=== PATIENT | male | born 1960 | race Caucasian/White ===

== ENCOUNTER 2019-09-29 22:57 | Emergency (ER) | payer BC ==
[~2019-09-29] VITALS: Ht 188 cm; Wt 111.4 kg
[2019-09-29] MEDS ORDERED: azithromycin 250mg tablet PO ONE (23:10)
[2019-09-29] MEDS ORDERED: AZIT-63 PO (23:12)
--- NOTE | 2019-09-29 23:45 | NUR ---
Consuelo duncan in [facility] - 09/29/19 at 2347 by BRIGIDA RESP HERE TO SEE PT
--- NOTE | 2019-09-29 23:45 | NUR ---
RESP HERE TO SEE PT
--- NOTE | 2019-09-29 23:46 | NUR ---
Consuelo duncan in [place] - 09/29/19 at 2347 by BRIGIDA BAILEE ABEBE
[2019-09-30 00:21] VITALS: BP 149/68
== END 2019-09-30 00:31 | disposition home or self-care (01) ==
LOC: ER 22:59
DX: J40 Bronchitis, not specified as acute or chronic (principal); Z79.899 Other long term (current) drug therapy
CPT/HCPCS: 99282; 99283

== ENCOUNTER 2020-01-02 05:01 | Day surgery (SDC) | payer BC ==
[2019-12-28 13:42] LABS: BASOPHILS # (AUTO) 0.1 X10'3 (0-0.2); BASOPHILS % (AUTO) 0.9 % (0-1); EOSINOPHILS # (AUTO) 0.3 X10'3 (0-0.9); EOSINOPHILS % (AUTO) 3.8 % (0-6); HEMATOCRIT 47.9 % (42.0-52.0); HEMOGLOBIN 16.6 g/dl (14.0-17.9); LYMPHOCYTES % (AUTO) 29.3 % (21-51); MEAN CORPUSCULAR HEMOGLOBIN 29.7 PG (27.0-31.0); MEAN CORPUSCULAR HGB CONC 34.7 g/dL (33.0-36.5); MEAN CORPUSCULAR VOLUME 85.7 FL (78-98); MONOCYTES # (AUTO) 0.8 X10'3 (0-0.9); MONOCYTES % (AUTO) 11.8 % (2-12); NEUTROPHILS # (AUTO) 3.6 X10'3 (1.8-7.7); NEUTROPHILS % (AUTO) 54.2 % (42-75); PLATELET COUNT 245 X10'3 (140-440); RED BLOOD COUNT 5.59 X10'6 (4.70-6.10); RED CELL DISTRIBUTION WIDTH 13.5 % (11.5-14.5); WHITE BLOOD COUNT 6.7 X10'3 (4.5-11.0)
[2019-12-28 13:55] LABS: ALBUMIN 4.4 G/DL (3.4-5.0); ANION GAP 7 (8-16); BLOOD UREA NITROGEN 15 MG/DL (7-18); CALCIUM 9.3 MG/DL (8.5-10.1); CHLORIDE 106 MMOL/L (99-107); CREATININE 0.75 MG/DL (0.60-1.10); GLUCOSE 102 MG/DL (70-104); SODIUM 141 MMOL/L (135-145); TOTAL CARBON DIOXIDE 27.9 MMOL/L (24-32); eGFR > 90 ML/MIN
[2019-12-28 13:56] LABS: PARTIAL THROMBOPLASTIN TIME 31 SECONDS (22-32)
[2020-01-02] VITALS (14 sets, daily range): BP systolic 123–160; BP diastolic 67–89
[~2020-01-02] VITALS: Ht 188 cm; Wt 124.1 kg
[2020-01-02] MEDS ORDERED: LORazepam 0.5 MG tablet PO PRN (05:25)
[2020-01-02] MEDS ORDERED: diphenhydrAMINE 25mg capsule PO PRN (05:25)
[2020-01-02] MEDS ORDERED: normal saline 1,000 ML IV SCH (05:25)
[2020-01-02] MEDS ORDERED: AMLO1CAP62 PO (05:39)
[2020-01-02] MEDS ORDERED: OMEG1CAP PO (05:39)
[2020-01-02] MEDS ORDERED: ASPI-611 PO (05:39)
[2020-01-02] MEDS ORDERED: fentaNYL/PF 50MCG/1 ML 2ML syringe ONE (06:02)
[2020-01-02] MEDS ORDERED: iohexol 350MG/ML 100ml bottle IV ONE ×2 (06:02→06:41)
[2020-01-02] MEDS ORDERED: LIDOcaine 1% (10mg/ml)w/preservative injection 20ml MDV ONE (06:02)
[2020-01-02] MEDS ORDERED: midazolam 2 mg/2 ml injection ONE ×2 (06:02→06:24)
[2020-01-02] MEDS ORDERED: heparin 1,000unit/ml 10ml vial 10 ML ONE (06:39)
[2020-01-02] MEDS ORDERED: HYDROcodone/acetaminophen 5mg/325mg tablet PO PRN (07:20)
[2020-01-02] MEDS ORDERED: proCHLORperazine 10 MG/2 ml inj IV PRN (07:20)
[2020-01-02] MEDS ORDERED: OXAZEpam 15mg capsule PO PRN (07:20)
[2020-01-02] MEDS ORDERED: ondansetron/PF 4mg/2ml inj IV PRN (07:20)
[2020-01-02] MEDS ORDERED: HYDROcodone/acetaminophen 10/325mg tab PO PRN (07:20)
[2020-01-02] MEDS ORDERED: ACETYLCYSTEINE 200 MG/1 ML 4 ML ORAL SOLUTION PO SCH (08:00)
== END 2020-01-02 11:05 | disposition home or self-care (01) ==
LOC: SSTAY O 05:01
PROVIDERS: ATTEND Internal Medicine Interventional Cardiology
DX: R94.39 Abnormal result of other cardiovascular function study (principal); I25.10 Atherosclerotic heart disease of native coronary artery without angina pectoris; G47.33 Obstructive sleep apnea (adult) (pediatric); I10 Essential (primary) hypertension; F32.9 Major depressive disorder, single episode, unspecified; F41.9 Anxiety disorder, unspecified; N40.0 Benign prostatic hyperplasia without lower urinary tract symptoms; I44.0 Atrioventricular block, first degree; E78.5 Hyperlipidemia, unspecified; E66.9 Obesity, unspecified; Z68.35 Body mass index [BMI] 35.0-35.9, adult; Z79.899 Other long term (current) drug therapy; Z79.01 Long term (current) use of anticoagulants; Z87.891 Personal history of nicotine dependence
CPT/HCPCS: 36415; 80048; 85025; 85610; 85730; 93005; 93458; 99152; 99153; C1769; J1644; J2001; J2250; J3010; J7030; Q0163; Q9967; A4620; A6258